=== PATIENT | male | born 1950 | race Caucasian/White ===

== ENCOUNTER 2021-06-18 10:48 | Outpatient (CLI) | payer MEDICARE ==
[2021-06-18 11:56] LABS: Hemoglobin 14.4 g/dL (13.5-17.5); Mean Corpuscular HGB CONC 31.3 g/dL (32.0-36.0); Mean Corpuscular Hemoglobin 29.6 pg (27.0-33.0); Mean Corpuscular Volume 94.7 fl (81.2-95.1); Mean Platelet Volume 9.2 fl (7.4-10.4); Platelet Count 269 10x3/uL (150-450); RBC Distribution Width 13.4 % (11.5-14.5); Red Blood Cell (RBC) Count 4.86 10x6/uL (4.32-5.72); White Blood Cell (WBC) Count 9.1 10x3/uL (3.5-10.5)
[2021-06-18 12:17] LABS: INR-International Normal Ratio 0.9; PTT 28.2 sec (22.0-33.0); Prothrombin Time 10.3 sec (9.5-12.1)
[2021-06-18 12:22] LABS: Anion Gap 16 mmol/L (10-20); BUN (Urea Nitrogen) 18 mg/dL (8.4-25.7); Calc. Creatinine Clearance 0 mL/min (70-130); Calcium 9.6 mg/dL (7.8-10.44); Carbon Dioxide 27 mmol/L (23-31); Chloride 102 mmol/L (98-107); Glucose 197 mg/dL (83-110); Sodium 140 mmol/L (136-145)
[2021-06-18 17:59] LABS: SARS-CoV-2 PCR by NAA Not Detected (NotDetected)
== END 2021-06-18 10:49 | disposition home or self-care (01) ==
LOC: CSHLAB 10:48
PROVIDERS: ATTEND Specialist
DX: Z01.818 Encounter for other preprocedural examination (principal); Z20.822 Contact with and (suspected) exposure to COVID-19
CPT/HCPCS: 80048; 85027; 85610; 85730; 93005; 93010; U0003; U0005

== ENCOUNTER 2021-06-21 05:58 | Inpatient (IN) | payer MEDICARE ==
[2021-06-21] MEDS ORDERED: Acetylcysteine 800 MG/4 ML VIAL ONE (06:53)
[2021-06-21] MEDS ORDERED: Nitroglycerin 50 MG/250 ML BOT 0 ML ONE (07:21)
[2021-06-21] MEDS ORDERED: Heparin 10,000 UNITS/ 10 ML VIAL ONE ×2 (07:21→09:33)
[2021-06-21] MEDS ORDERED: Adenosine 6 MG/2 ML VIAL ONE (07:22)
[2021-06-21] MEDS ORDERED: Verapamil 5 MG/2 ML VIAL ONE (07:22)
[2021-06-21] MEDS ORDERED: Bivalirudin 250 MG VIAL ONE (07:23)
[2021-06-21] MEDS ORDERED: Lidocaine 1% (PF) 30 ML VIAL ONE (07:35)
[2021-06-21] MEDS ORDERED: Midazolam HCl 2 mg/2 ml Vial ONE ×3 (07:48→09:04)
[2021-06-21] MEDS ORDERED: Fentanyl 100 MCG/2 ML VIAL ONE ×2 (07:48→09:29)
[2021-06-21] MEDS ORDERED: Morphine 4 MG/ML VIAL ONE (10:25)
[2021-06-21] MEDS ORDERED: Ondansetron ODT 4 MG TAB PO PRN (11:45)
[2021-06-21] MEDS ORDERED: Loperamide HCl 2 MG CAP PO PRN (11:45)
[2021-06-21] MEDS ORDERED: Acetaminophen 325 MG TAB PO PRN (11:45)
[2021-06-21] MEDS ORDERED: Calcium Carbonate 500 MG ChewTAB PO PRN ×2 (11:45→12:26)
[2021-06-21] MEDS ORDERED: Bisacodyl 5 MG TAB PO PRN (11:45)
[2021-06-21] MEDS ORDERED: Zolpidem Tartrate 5 MG TAB PO PRN (11:45)
[2021-06-21] MEDS ORDERED: HYDROcodone/Acetaminophen 7.5/325 mg Tablet PO PRN ×2 (11:45→17:57)
[2021-06-21] MEDS ORDERED: HYDROcodone/Acetaminophen 5/325 mg Tablet PO PRN ×2 (11:45→17:57)
[2021-06-21] MEDS ORDERED: Sodium Chloride 0.9% 200 ML IV PRN (11:50)
[2021-06-21] MEDS ORDERED: Acetaminophen/Codeine 30-300mg Tablet PO PRN ×2 (11:50)
[2021-06-21] MEDS ORDERED: Nitroglycerin 0.4 MG TAB (25 Tab Bottle) SL PRN (11:50)
[2021-06-21 11:56] VITALS: BMI 42.2
[2021-06-21] MEDS ORDERED: HYDROcodone/Acetaminophen 10/325 mg Tablet PO PRN (12:33)
[2021-06-21] MEDS ORDERED: Dextrose 5% in Water 1,000 ML IV PRN (13:48)
[2021-06-21] MEDS ORDERED: Dextrose 50% Abboject 50 ML SYRINGE SLOW IVP PRN (13:48)
[2021-06-21] MEDS ORDERED: Nicotine 14 MG PATCH TD SCH (14:00)
[2021-06-21] MEDS: Sodium Chloride 0.9% 1,000 ML IV SCH (15:10)
[2021-06-21] MEDS: Insulin Regular 300 UNITS/3 ML VIAL SC PRN ×2 (16:50→21:13)
[2021-06-21] MEDS ORDERED: Atorvastatin Calcium 20 MG TAB PO SCH (21:00)
[2021-06-21] MEDS ORDERED: NIFEdipine XL 30 MG TAB PO SCH (21:00)
[2021-06-22] MEDS: Sodium Chloride 0.9% 1,000 ML IV SCH (02:34)
[2021-06-22 04:55] LABS: #Basophils 0.1 10x3/uL (0.0-0.2); #Eosinphils 0.2 10x3/uL (0.0-0.5); #Monocytes 0.8 10x3/uL (0.0-1.1); #Neutrophils 7.5 10x3/uL (1.5-8.4); %Basophils 0.6 % (0.0-2.0); %Eosinophils 2.1 % (0.0-6.0); %Monocytes 7.4 % (0.0-10.0); %Neutrophils 68.4 % (40.0-75.0); Hemoglobin 12.1 g/dL (13.5-17.5); Mean Corpuscular HGB CONC 31.8 g/dL (32.0-36.0); Mean Corpuscular Hemoglobin 29.7 pg (27.0-33.0); Mean Corpuscular Volume 93.4 fl (81.2-95.1); Mean Platelet Volume 9.4 fl (7.4-10.4); Platelet Count 214 10x3/uL (150-450); RBC Distribution Width 13.4 % (11.5-14.5); Red Blood Cell (RBC) Count 4.07 10x6/uL (4.32-5.72); White Blood Cell (WBC) Count 10.9 10x3/uL (3.5-10.5)
[2021-06-22 05:01] LABS: Anion Gap 12 mmol/L (10-20); BUN (Urea Nitrogen) 21 mg/dL (8.4-25.7); Calc. Creatinine Clearance 94 mL/min (70-130); Calcium 8.5 mg/dL (7.8-10.44); Carbon Dioxide 26 mmol/L (23-31); Chloride 103 mmol/L (98-107); Glucose 133 mg/dL (83-110); Potassium 4.4 mmol/L (3.5-5.1); Sodium 137 mmol/L (136-145)
[2021-06-22] MEDS ORDERED: Clopidogrel Bisulfate 75 MG TAB PO SCH (09:00)
[2021-06-22] MEDS ORDERED: Lisinopril 10 MG TAB PO SCH ×2 (09:00)
[2021-06-22] MEDS ORDERED: Aspirin 81 mg Enteric Coated Tablet PO SCH (09:00)
[2021-06-22] MEDS ORDERED: Enoxaparin Sodium 40 MG/0.4 ML SYRINGE SC SCH (09:00)
[2021-06-22] MEDS ORDERED: Hydrochlorothiazide 25 MG TAB PO SCH (09:00)
[2021-06-22] MEDS ORDERED: Fish Oil 1,000 MG CAP PO SCH (09:00)
[2021-06-22 11:37] VITALS: BP 137/67; TEMP 97.7
== END 2021-06-22 12:28 | disposition home or self-care (01) | DRG 269 ==
LOC: CSHSDC 05:58 → CSHIMCU 10:49
PROVIDERS: ADMIT Specialist; ATTEND Specialist
PROC: 04V03DZ Restriction of Abdominal Aorta with Intraluminal Device, Percutaneous Approach (ICD-10-PCS; principal; 2021-06-21)
PROC: 04QL0ZZ Repair Left Femoral Artery, Open Approach (ICD-10-PCS; 2021-06-21)
PROC: 04QK0ZZ Repair Right Femoral Artery, Open Approach (ICD-10-PCS; 2021-06-21)
PROC: B4101ZZ Fluoroscopy of Abdominal Aorta using Low Osmolar Contrast (ICD-10-PCS; 2021-06-21)
DX: I71.4 Abdominal aortic aneurysm, without rupture (principal); Z68.41 Body mass index [BMI] 40.0-44.9, adult; I10 Essential (primary) hypertension; M19.90 Unspecified osteoarthritis, unspecified site; F32.A Depression, unspecified; E66.01 Morbid (severe) obesity due to excess calories; E78.5 Hyperlipidemia, unspecified; F17.210 Nicotine dependence, cigarettes, uncomplicated; E11.51 Type 2 diabetes mellitus with diabetic peripheral angiopathy without gangrene; I25.10 Atherosclerotic heart disease of native coronary artery without angina pectoris; Z95.5 Presence of coronary angioplasty implant and graft; Z71.6 Tobacco abuse counseling
CPT/HCPCS: 34705; 34709; 34713; 36415; 36416; 75625; 75736; 80048; 85025; 85027; 85347; 85610; 85730; 93005; 93010; 99152; 99153; C1758; C1760; C1894; J0153; J0583; J1644; J1650; J1815; J2001; J2250; J2270; J3010; J7050; U0003; U0005

== ENCOUNTER 2022-03-11 14:41 | Outpatient (CLI) | payer MEDICARE | END 2022-03-11 14:42 | disposition home or self-care (01) | LOC: CSHULT 14:41 | PROVIDERS: ATTEND Otolaryngology Plastic Surgery within the Head & Neck | DX: E07.9 Disorder of thyroid, unspecified (principal); E01.0 Iodine-deficiency related diffuse (endemic) goiter | CPT/HCPCS: 76536 ==